=== PATIENT | male | born 1990 | race Asian ===

== ENCOUNTER 2019-05-15 09:07 | Day surgery (SDC) | payer OTHER ==
[2019-05-14 14:20] VITALS: Ht 177.8 cm; Wt 69.0 kg
[2019-05-15] VITALS (13 sets, daily range): BP systolic 105–141; BP diastolic 58–93; PULSE 58–100; RESP 12–19
[~2019-05-15] VITALS: Ht 177.8 cm; Wt 69.0 kg
[~2019-05-15 09:07] MED LIST: CEFAZOLIN (20 MG/ML) IV SYG IV* ONE; CEFAZOLIN 1 GM INJ ONE; CEFAZOLIN 2 GM/50 ML (PMX) 50 ML IVPB ONE; DEXAMETHASONE 4 MG/ML 5 ML INJ ONE; FENTAnyl 50 MCG/ML VIAL ONE; HYDR-3609 ORAL; IBUP-1542 ORAL; LACTATED RINGER'S 1,000 ML IV SCH; LIDOCAINE 2% (SDV) 5 ML INJ ONE; LIDOCAINE 4% CR TOP ONE; MIDAZOLAM 1 MG/ML 2 ML INJ ONE; ONDANSETRON 4 MG INJ ONE; PROPOFOL 20 ML ONE
[2019-05-15] MEDS ORDERED: POLYMYXIN/BACITRACIN 1L IRRIG ONE (10:49)
[2019-05-15] MEDS ORDERED: HYDROmorphONE 1 MG/5 ML IV SYRINGE IV PRN ×3 (11:00)
[2019-05-15] MEDS ORDERED: OXYCODONE/ACETAMINOPHEN (5/325) TAB PO ONE (13:30)
== END 2019-05-15 13:43 | disposition home or self-care (01) ==
LOC: SDS 09:07
PROVIDERS: ATTEND Orthopaedic Surgery
DX: S82.51XA Displaced fracture of medial malleolus of right tibia, initial encounter for closed fracture (principal); F12.90 Cannabis use, unspecified, uncomplicated; Z87.891 Personal history of nicotine dependence; W17.89XA Other fall from one level to another, initial encounter; Y93.89 Activity, other specified; Y92.89 Other specified places as the place of occurrence of the external cause; Y99.8 Other external cause status
CPT/HCPCS: 27766; 73610; C1713; J0690; J1100; J1170; J2250; J2405; J3010; Z7512; Z7610

== ENCOUNTER 2019-05-19 18:02 | Inpatient (IN) | payer OTHER ==
[~2019-05-19] VITALS: Ht 177.8 cm; Wt 69.9 kg
[~2019-05-19 18:02] MED LIST changes: -CEFAZOLIN (20 MG/ML) IV SYG IV* ONE; -CEFAZOLIN 1 GM INJ ONE; -CEFAZOLIN 2 GM/50 ML (PMX) 50 ML IVPB ONE; -DEXAMETHASONE 4 MG/ML 5 ML INJ ONE; -FENTAnyl 50 MCG/ML VIAL ONE; -LACTATED RINGER'S 1,000 ML IV SCH; -LIDOCAINE 2% (SDV) 5 ML INJ ONE; -LIDOCAINE 4% CR TOP ONE; -MIDAZOLAM 1 MG/ML 2 ML INJ ONE; -ONDANSETRON 4 MG INJ ONE; -PROPOFOL 20 ML ONE
[2019-05-19 22:34] VITALS: BP 118/60; PULSE 50; RESP 20
[2019-05-19 23:25] VITALS: Ht 177.8 cm; Wt 69.9 kg
[2019-05-19] MEDS ORDERED: NACL 0.9% 3 ML SYG IV SCH (23:30)
[2019-05-19] MEDS ORDERED: HYDROCODONE/APAP (5/325) TAB PO PRN (23:30)
[2019-05-20] MEDS ORDERED: ONDANSETRON INJ 8 MG in DEXTROSE 5% 50 ML IV PRN ×2
[2019-05-20] MEDS: ONDANSETRON INJ 8 MG in SOD CHLORIDE 0.9% 50 ML IV PRN ×2 (00:30→11:04)
[2019-05-20] MEDS: DEXTROSE 5%-0.45% NACL 1,000 ML IV SCH ×4 (00:30→18:29)
[2019-05-20] MEDS: KETOROLAC 30 MG INJ IV PRN ×3 (00:49→17:59)
[2019-05-20 02:15] VITALS: BP 127/75; PULSE 66; RESP 20
[2019-05-20] MEDS: HYDROCODONE/APAP (5/325) TAB PO PRN ×3 (07:15→21:22)
[2019-05-20 08:15] VITALS: BP 128/60; PULSE 50; RESP 16
[2019-05-20] MEDS: FAMOTIDINE 20 MG INJ IV SCH ×2 (09:38→20:29)
[2019-05-20 14:05] VITALS: BP 117/69; PULSE 54; RESP 16
[2019-05-20] MEDS: POTASSIUM CHLORIDE (SR) 20 MEQ TAB PO SCH ×2 (15:20→18:01)
[2019-05-20] MEDS ORDERED: hydrOXYzine PAMOATE 25 MG CAP PO PRN (17:00)
[2019-05-20 20:00] VITALS: BP 119/74; PULSE 54; RESP 17
[2019-05-20] MEDS: ZOLPIDEM 5 MG TAB PO PRN ×2 (20:29→22:34)
[2019-05-21] MEDS: ONDANSETRON INJ 8 MG in SOD CHLORIDE 0.9% 50 ML IV PRN (01:37)
[2019-05-21] MEDS: DEXTROSE 5%-0.45% NACL 1,000 ML IV SCH ×2 (01:56→16:16)
[2019-05-21 02:19] VITALS: BP 117/66; PULSE 53; RESP 19
[2019-05-21] MEDS ORDERED: ALPRAZOLAM 0.25 MG TAB PO ONE (03:00)
[2019-05-21 07:47] VITALS: BP 121/68; PULSE 50; RESP 18
[2019-05-21] MEDS: HYDROCODONE/APAP (5/325) TAB PO PRN ×2 (07:51→14:04)
[2019-05-21] MEDS: FAMOTIDINE 20 MG INJ IV SCH (08:44)
[2019-05-21 14:00] VITALS: BP 119/67; PULSE 60; RESP 18
[2019-05-21] MEDS ORDERED: ONDANSETRON 4 MG INJ IV PRN (16:30)
[2019-05-21] MEDS: METOCLOPRAMIDE 10 MG INJ IV SCH ×2 (18:37→23:58)
[2019-05-21 19:22] VITALS: BP 126/73; PULSE 51; RESP 18
[2019-05-21] MEDS: METHADONE (1 MG/ML 5 ML PO UD SYG) PO SCH (19:58)
[2019-05-21] MEDS: ONDANSETRON 4 MG INJ IV PRN (21:02)
[2019-05-21] MEDS ORDERED: METHADONE (1 MG/ML 5 ML PO UD SYG) PO SCH (22:00)
[2019-05-21] MEDS ORDERED: METHADONE (1 MG/ML 5 ML PO UD SYG) PO ONE (22:00)
[2019-05-22] MEDS: ONDANSETRON 4 MG INJ IV PRN ×3 (01:01→11:00)
[2019-05-22 02:18] VITALS: BP 117/66; PULSE 56; RESP 18
[2019-05-22] MEDS: DEXTROSE 5%-0.45% NACL 1,000 ML IV SCH ×4 (03:03→17:40)
[2019-05-22] MEDS: PANTOPRAZOLE 40 MG INJ IV SCH (05:42)
[2019-05-22] MEDS: METOCLOPRAMIDE 10 MG INJ IV SCH ×4 (05:42→23:23)
[2019-05-22] MEDS: METHADONE (1 MG/ML 5 ML PO UD SYG) PO SCH ×2 (06:00→22:22)
[2019-05-22] MEDS ORDERED: morphine 2 MG INJ IV STA (06:15)
[2019-05-22 07:16] VITALS: BP 118/70; PULSE 49; RESP 17
[2019-05-22] MEDS: ACETAMINOPHEN 325 MG TAB PO PRN (07:56)
[2019-05-22] MEDS: morphine 2 MG INJ IV SCH ×3 (07:58→15:00)
[2019-05-22] MEDS: POTASSIUM CHLORIDE 100 ML IVPB SCH ×2 (13:18→15:58)
[2019-05-22 14:00] VITALS: BP 113/63; PULSE 51; RESP 16
[2019-05-22 17:02] VITALS: BP 119/71; PULSE 49; RESP 15
[2019-05-22] MEDS ORDERED: LORAZEPAM 2 MG INJ IV PRN ×2 (17:30→23:30)
[2019-05-22] MEDS ORDERED: LORAZEPAM 2 MG INJ IV ONE (18:30)
[2019-05-22] MEDS ORDERED: CARISOPRODOL 350 MG TAB PO ONE (18:30)
[2019-05-22 20:06] VITALS: BP 122/62; PULSE 56; RESP 18
[2019-05-23] MEDS ORDERED: DEXTROSE 5%-0.45% NACL 500 ML BAG IV ONE (00:30)
[2019-05-23] MEDS ORDERED: POTASSIUM CHLORIDE (SR) 20 MEQ TAB PO ONE (00:33)
[2019-05-23 02:00] VITALS: BP 100/59; PULSE 59; RESP 18
[2019-05-23] MEDS: DEXTROSE 5%-0.45% NACL 1,000 ML IV SCH ×2 (02:18→12:10)
[2019-05-23] MEDS: METOCLOPRAMIDE 10 MG INJ IV SCH ×2 (05:38→12:10)
[2019-05-23] MEDS: PANTOPRAZOLE 40 MG INJ IV SCH (05:38)
[2019-05-23 07:12] VITALS: BP 122/69; PULSE 45; RESP 16
[2019-05-23 14:19] VITALS: BP 106/65; PULSE 60; RESP 16
[2019-05-23] MEDS: ACETAMINOPHEN 325 MG TAB PO PRN ×2 (17:05→23:10)
[2019-05-23 20:00] VITALS: BP 113/69; PULSE 58; RESP 18
[2019-05-23] MEDS: ONDANSETRON 4 MG INJ IV PRN (21:09)
[2019-05-23] MEDS: METHADONE (1 MG/ML 5 ML PO UD SYG) PO SCH (21:44)
[2019-05-24 03:02] VITALS: BP 114/61; PULSE 44; RESP 18
[2019-05-24] MEDS: PANTOPRAZOLE 40 MG INJ IV SCH (06:46)
[2019-05-24 08:00] VITALS: BP 103/60; PULSE 53; RESP 18
[2019-05-25] MEDS ORDERED: PANTOPRAZOLE (EC) 40 MG TAB PO SCH (06:00)
== END 2019-05-24 12:40 | disposition home or self-care (01) | DRG 392 ==
LOC: 2NE 22:01 → MS3 05-20 19:15
PROVIDERS: ADMIT Hospitalist; ATTEND Internal Medicine
DX: R11.2 Nausea with vomiting, unspecified (principal); F11.23 Opioid dependence with withdrawal; R65.10 Systemic inflammatory response syndrome (SIRS) of non-infectious origin without acute organ dysfunction; F11.10 Opioid abuse, uncomplicated; F10.10 Alcohol abuse, uncomplicated; F41.9 Anxiety disorder, unspecified; Z72.89 Other problems related to lifestyle; R94.6 Abnormal results of thyroid function studies
CPT/HCPCS: 71045; 74018; 80048; 80053; 80061; 80307; 81003; 82550; 83036; 83690; 83735; 84100; 84436; 84443; 84479; 85025; 93306; 97161; C9113; J1885; J2060; J2270; J2405; J2765; J3480; J7042